=== PATIENT | female | born 1950 | race Caucasian/White ===

== ENCOUNTER 2017-06-20 11:45 | Outpatient (CLI) | payer OTHER ==
--- NOTE | 2017-06-21 14:27 | Mammography Report ---
BILATERAL DIGITAL SCREENING MAMMOGRAM with CAD: 06/20/17 11:45:00 CLINICAL: Routine screening. COMPARISON:06/18/16 and 05/04/15 FINDINGS: The breasts are almost entirely fatty.Bilateral benign calcifications. No mass, architectural distortion or suspicious calcifications. IMPRESSION: No mammographic evidence of malignancy. BI-RADS CATEGORY: 2 -- Benign RECOMMENDATION: Routine mammographic screening in one year. COMMENT: Patient follow-up letters are generated by our [employer] application.
== END 2017-06-20 11:46 | disposition home or self-care (01) ==
LOC: SPVWC 11:45
PROVIDERS: ATTEND Family Medicine
DX: Z12.31 Encounter for screening mammogram for malignant neoplasm of breast (principal)
CPT/HCPCS: 77067; G0202

== ENCOUNTER 2018-07-17 12:32 | Outpatient (CLI) | payer MEDICARE ==
--- NOTE | 2018-07-17 14:52 | Mammography Report ---
BILATERAL DIGITAL SCREENING MAMMOGRAM with CAD: 07/17/18 12:32:00 CLINICAL: Routine screening. COMPARISON:06/20/17 FINDINGS: The breasts are almost entirely fatty.Scattered bilateral benign calcifications. No mass, architectural distortion or suspicious calcifications. IMPRESSION: No mammographic evidence of malignancy. BI-RADS CATEGORY: 2 -- Benign RECOMMENDATION: Routine mammographic screening in one year. COMMENT: Patient follow-up letters are generated by our [employer] application.
== END 2018-07-17 12:33 | disposition home or self-care (01) ==
LOC: SPVWC 12:32
PROVIDERS: ATTEND Obstetrics & Gynecology
DX: Z12.31 Encounter for screening mammogram for malignant neoplasm of breast (principal)
CPT/HCPCS: 77067

== ENCOUNTER 2018-10-13 14:04 | Emergency (ER) | payer MEDICARE ==
--- NOTE | 2018-10-13 14:23 | Emergency Department Report ---
Chief Complaint: Headache Stated Complaint: MEDICAL CLEARANCE Time Seen by Provider: 10/13/18 14:18 - HPI History of Present Illness: Pt sent by Dr. Jacek Bill from [facility] pt presents with a pressure in the occipital region that began a week ago pt has dizziness, felt off balance pt states she has had vertigo previously but states it feels different no numbness, unilateral weakness no CP PMHx DM, HTN, HLD PSHx partial hysterectomy, bladder prolapse surgery MSE screening note: Focused history and physical exam performed. Due to findings the following was ordered: CT head, labs, EKG, and orthostatic vitals, UA ED Disposition for MSE Condition: Stable
[2018-10-13 15:34] LABS: Bilirubin,Urine NEG (Negative); Blood,Urine SM (Negative); Color,Urine Straw (Yellow); Protein,Urine <15 mg/dL mg/dL (Negative); Urobilinogen,Urine < 2.0 mg/dL (<2.0); WBC,Urine < 1.0 /HPF (0.0-6.0)
--- NOTE | 2018-10-13 16:12 | Cat Scan Report ---
PROCEDURE: CT HEAD/BRAIN WO CON TECHNIQUE: Spiral CT imaging of the brain was obtained without IV contrast. HISTORY: NAVARRO, dizziness COMPARISONS: None FINDINGS: Brain: Brain density appears normal. No evidence of intracranial hemorrhage. No parenchymal hemorr cole, mass lesions or mass effect are seen. No abnormal extra-axial fluid collects or masses are see n. I suspect there is a prominent perivascular space at the base of the right basal ganglia laterally . An old lacunar infarct could present in this manner. Ventricles: Ventricles are normal size and are midline. Bone Windows: No evidence of skull fracture. Paranasal sinuses: Visualized portions are clear.. Mastoid air cells: Clear. IMPRESSION: Well-defined area of decreased density inferior aspect right basal ganglia likely representing a prom inent perivascular space. I cannot exclude an old mature lacunar infarct. No acute intracranial abnormalities are visualized. This document is electronically signed by Fab Blackman MD., October 13 2018 04:10:05 PM ET
--- NOTE | 2018-10-13 16:24 | Emergency Department Report ---
ED Dizziness HPI - General Chief Complaint: Headache Stated Complaint: MEDICAL CLEARANCE Time Seen by Provider: 10/13/18 14:18 Source: patient Mode of arrival: Ambulatory Limitations: No Limitations - History of Present Illness Initial Comments: Patient is 68-year-old female with history of hypertension and diabetes. Patient presented to the ER complaining off 1 week history of dizziness and feeling room spinning. Patient stated that she's been having sinus pressure also. Patient denied any fever, neck pain or stiffness. Patient also denied any chest pain, weakness numbness of tingling sensation. MD Complaint: dizziness -: week(s) Timing: gradual onset Description: sense of movement, "room spinning" History of Same: Yes History of Trauma: No Severity: moderate Improves With: remaining still Worsens With: movement, position Associated Symptoms: denies other symptoms - Related Data Allergies Allergy/AdvReac Type Severity Reaction Status Date / Time codeine Allergy Unknown Verified 10/13/18 14:16 ED Review of Systems ROS: Stated complaint: MEDICAL CLEARANCE Other details as noted in HPI Comment: All other systems reviewed and negative Constitutional: denies: chills, fever Respiratory: denies: cough, orthopnea, shortness of breath, SOB with exertion, SOB at rest, wheezing Cardiovascular: denies: chest pain, palpitations Gastrointestinal: denies: abdominal pain, nausea, vomiting, diarrhea, constipation, hematemesis, melena, hematochezia Musculoskeletal: denies: back pain Neurological: headache, vertigo. denies: weakness, numbness, paresthesias, confusion, abnormal gait ED Past Medical Hx - Past Medical History Hx Hypertension: Yes Hx Diabetes: Yes Additional medical history: elevated cholesterol - Surgical History Additional Surgical History: partial hysterectomy,bladder tack - Social History Smoking Status: Never Smoker Substance Use Type: None ED Physical Exam - General Limitations: No Limitations General appearance: alert, in no apparent distress - Head Head exam: Present: atraumatic, normocephalic, normal inspection - Eye Eye exam: Present: normal appearance, PERRL - ENT ENT exam: Present: normal exam, normal orophraynx, mucous membranes moist - Neck Neck exam: Present: normal inspection, full ROM. Absent: tenderness, meningismus, lymphadenopathy, thyromegaly - Respiratory Respiratory exam: Present: normal lung sounds bilaterally - Cardiovascular Cardiovascular Exam: Present: regular rate, normal rhythm, normal heart sounds - GI/Abdominal GI/Abdominal exam: Present: soft, normal bowel sounds. Absent: distended, tenderness, guarding, rebound, rigid, organomegaly, mass, bruit, pulsatile mass, hernia - Extremities Exam Extremities exam: Present: normal inspection, full ROM, normal capillary refill. Absent: tenderness, pedal edema, calf tenderness - Back Exam Back exam: Present: normal inspection, full ROM. Absent: CVA tenderness (R), CVA tenderness (L), muscle spasm, paraspinal tenderness, vertebral tenderness - Neurological Exam Neurological exam: Present: alert, oriented X3, CN II-XII intact, normal gait, reflexes normal - Skin Skin exam: Present: warm, intact, normal color ED Course Vital Signs 10/13/18 10/13/18 10/13/18 14:19 15:40 15:45 Temperature 97.8 F Pulse Rate 88 70 Respiratory 18 11 L Rate Blood Pressure 167/80 130/65 O2 Sat by Pulse 100 99 99 Oximetry 10/13/18 10/13/18 10/13/18 16:00 16:15 16:30 Temperature Pulse Rate 66 68 66 Respiratory 16 16 12 Rate Blood Pressure 114/66 122/69 124/71 O2 Sat by Pulse 98 98 Oximetry 10/13/18 16:45 Temperature Pulse Rate 64 Respiratory 17 Rate Blood Pressure 126/70 O2 Sat by Pulse 97 Oximetry ED Medical Decision Making - Lab Data Result diagrams: 10/13/18 14:27 10/13/18 14:27 - EKG Data -: EKG Interpreted by Nh EKG shows normal: sinus rhythm Rate: normal - EKG Data Interpretation: no acute changes - Radiology Data Radiology results: report reviewed Referring Physician: YONI PORTILLO Patient Name: MIRLANDE FUENTES Date of : 1950 Sex: Female Report Date: 2018-10-13 Report Status: Finalized Findings [facility] [address] [place] [address] Cat Scan Report Signed Patient: MIRLANDE FUENTES MR#: [id number] : 1950 Acct:[id number] Age/Sex: 68 / F ADM Date: 10/13/18 Loc: ED Attending Dr: Ordering Physician: ALICIA GAGNON Date of Service: 10/13/18 Procedure(s): CT head/brain wo con Accession Number(s): [id number] cc: ALICIA GAGNON PROCEDURE: CT HEAD/BRAIN WO CON TECHNIQUE: Spiral CT imaging of the brain was obtained without IV contrast. HISTORY: NAVARRO, dizziness COMPARISONS: None FINDINGS: Brain: Brain density appears normal. No evidence of intracranial hemorrhage. No parenchymal hemorrhage, mass lesions or mass effect are seen. No abnormal extra-axial fluid collects or masses are seen. I suspect there is a prominent perivascular space at the base of the right basal ganglia laterally. An old lacunar infarct could present in this manner. Ventricles: Ventricles are normal size and are midline. Bone Windows: No evidence of skull fracture. Paranasal sinuses: Visualized portions are clear.. Mastoid air cells: Clear. IMPRESSION: Well-defined area of decreased density inferior aspect right basal ganglia likely representing a prominent perivascular space. I cannot exclude an old mature lacunar infarct. No acute intracranial abnormalities are visualized. This document is electronically signed by Fab Martino MD., October 13 2018 04:10:05 PM ET Transcribed By: DFN Dictated By: FAB MARTINO MD Electronically Authenticated By: FAB MARTINO MD Signed Date/Time: 10/13/18 1612 DD/ 160 TD/TT: 10/13/18 1604 - Medical Decision Making Patient is 68-year-old female with history of hypertension and diabetes. Patient presented to the ER complaining off 1 week history of dizziness and feeling room spinning. Patient stated that she's been having sinus pressure also. Patient denied any fever, neck pain or stiffness. Patient also denied any chest pain, weakness numbness of tingling sensation. Patient received meclizine 25 mg by mouth. Patient stated that she is feeling much better and she is ready to go home. Patient advised to follow-up with her primary care physician in the next 2-3 days for further management. Patient also advised to return to the ER if her symptoms are not improved. Critical care attestation.: If time is entered above; I have spent that time in minutes in the direct care of this critically ill patient, excluding procedure time. ED Disposition Clinical Impression: Dizziness, Vertigo, Sinusitis Disposition: DC-01 TO HOME OR SELFCARE Is pt being admited?: No Condition: Stable Instructions: Vertigo (ED), Dizziness (ED), Sinusitis (ED) Referrals: DEL HSIEH MD [Primary Care Provider] - 3-5 Days
[2018-10-13] MEDS ORDERED: ANTIVERT PO ONE (16:26)
[2018-10-13 16:28] LABS: Basophils % (Auto) 0.3 % (0.0-1.8); Eosinophils # (Auto) 0.2 K/mm3 (0.0-0.4); Eosinophils % (Auto) 3.1 % (0.0-4.3); Hemoglobin 13.7 gm/dl (10.1-14.3); Lymphocytes # (Auto) 2.6 K/mm3 (1.2-5.4); Lymphocytes % (Auto) 37.1 % (13.4-35.0); Mean Corpuscular HGB Conc 33 % (30-34); Mean Corpuscular Volume 91 fl (79-97); Monocytes # (Auto) 0.3 K/mm3 (0.0-0.8); Monocytes % (Auto) 4.6 % (0.0-7.3); Platelet Count 253 K/mm3 (140-440); Red Blood Count 4.53 M/mm3 (3.65-5.03); Red Cell Distribution Width 14.9 % (13.2-15.2)
[2018-10-13 16:51] LABS: Alanine Aminotransferase 20 units/L (7-56); Albumin 4.3 g/dL (3.9-5); BUN/Creatinine Ratio 20; Blood Urea Nitrogen 10 mg/dL (7-17); Calcium 9.4 mg/dL (8.4-10.2); Hemolysis Index 11
[2018-10-14 19:09] VITALS: BP 126/70
== END 2018-10-13 18:30 | disposition home or self-care (01) ==
LOC: ED 14:04
DX: R42 Dizziness and giddiness (principal); J32.9 Chronic sinusitis, unspecified; I10 Essential (primary) hypertension; E11.9 Type 2 diabetes mellitus without complications; E78.00 Pure hypercholesterolemia, unspecified; Z90.710 Acquired absence of both cervix and uterus; Z88.6 Allergy status to analgesic agent
CPT/HCPCS: 36415; 70450; 80053; 81001; 84443; 85025; 93005; 93010; 99284

== ENCOUNTER 2019-09-15 10:26 | Outpatient (CLI) | payer MEDICARE ==
--- NOTE | 2019-09-15 12:48 | Mammography Report ---
DIGITAL SCREENING MAMMOGRAM WITH CAD, 09/15/2019 INDICATION: Routine screening mammography. TECHNIQUE: Digital bilateral 2D mammography was obtained in the craniocaudal and mediolateral obliq ue projections. This examination was interpreted with the benefit of Computer-Aided Detection analysi s. COMPARISON: 06/18/2016 FINDINGS: Breast Density: There are scattered areas of fibroglandular density. There is no evidence of dominant mass, suspicious calcifications or architectural distortion in eithe r breast. Scattered bilateral benign calcifications. IMPRESSION: No mammographic evidence of malignancy. Follow up recommendation: Routine yearly BI-RADS Category 2: Benign. A "normal" or negative report should not discourage follow up or biopsy of a clinically significant f inding. A written summary of these findings will be mailed to the patient. The patient will be entered into a mammography reporting system which will generate a reminder letter for the patient's next appointmen t at the appropriate interval. The [employer] recommends yearly mammograms starting at age 40 and continuing as l perry as a woman is in good health. Breast MRI is recommended for women with an approximate 20-25% or greater lifetime risk of breast cancer, including women with a strong family history of breast or ova tyler cancer or who have been treated for Hodgkin's disease. Signer Name: Jacek Enrique MD Signed: 09/15/2019 12:43 PM Workstation Name: [id number]
== END 2019-09-15 10:27 | disposition home or self-care (01) ==
LOC: SPVWC 10:26
PROVIDERS: ATTEND Internal Medicine
DX: Z12.31 Encounter for screening mammogram for malignant neoplasm of breast (principal); N64.89 Other specified disorders of breast
CPT/HCPCS: 77067

== ENCOUNTER 2020-09-16 10:09 | Outpatient (CLI) | payer MEDICARE ==
--- NOTE | 2020-09-16 12:32 | Mammography Report ---
DIGITAL SCREENING MAMMOGRAM WITH CAD, 09/16/2020 CLINICAL INFORMATION / INDICATION: Routine screening mammography. SCREENING MAMMO TECHNIQUE: Digital bilateral 2D mammography was obtained in the craniocaudal and mediolateral obliqu e projections. This examination was interpreted with the benefit of Computer-Aided Detection analysis . COMPARISON: 09/15/2019, 07/17/2018 FINDINGS: Breast Density: There are scattered areas of fibroglandular density. No dominant mass, suspicious calcifications, or architectural distortion in either breast. Postreduction changes are noted bilaterally IMPRESSION: No mammographic evidence of malignancy. Follow up recommendation: Routine yearly BI-RADS Category 2: Benign. A "normal" or negative report should not discourage follow up or biopsy of a clinically significant f inding. A written summary of these findings will be mailed to the patient. The patient will be entered into a mammography reporting system which will generate a reminder letter for the patient's next appointmen t at the appropriate interval. The [employer] recommends yearly mammograms starting at age 40 and continuing as l perry as a woman is in good health. Breast MRI is recommended for women with an approximate 20-25% or greater lifetime risk of breast cancer, including women with a strong family history of breast or ova tyler cancer or who have been treated for Hodgkin's disease. Signer Name: Gerard Garcia MD Signed: 09/16/2020 12:28 PM Workstation Name: [id number]
== END 2020-09-16 10:10 | disposition home or self-care (01) ==
LOC: SPVWC 10:09
PROVIDERS: ATTEND Internal Medicine
DX: Z12.31 Encounter for screening mammogram for malignant neoplasm of breast (principal)
CPT/HCPCS: 77067

== ENCOUNTER 2021-01-19 12:47 | Outpatient (CLI) | payer MEDICARE ==
--- NOTE | 2021-01-19 14:52 | Ultrasound Report ---
ULTRASOUND PELVIS INDICATION: ACUTE ABDOMEN. TECHNIQUE: Transabdominal and Transvaginal. Duplex Color Doppler used: Yes. COMPARISON: None available FINDINGS: Uterus: Surgically absent. No significant abnormality along the vaginal cuff. Right Ovary: Surgically absent. No significant right adnexal abnormality. Left Ovary: Not visualized. No significant left adnexal abnormality. Urinary Bladder: Normal. Free Fluid: None. Additional Findings: There is a prominent mildly thickened bowel loops seen along the left lower quad rant. IMPRESSION: 1. Prominent left lower quadrant bowel loop could represent enteritis and account for the patient's p ain. Please correlate with the clinical findings. A CT abdomen and pelvis with contrast may be helpfu l for further evaluation. 2. No other significant abnormality of the pelvis with additional findings as above. Signer Name: Maximino Velazquez MD Signed: 01/19/2021 2:48 PM Workstation Name: [id number]
== END 2021-01-19 12:48 | disposition home or self-care (01) ==
LOC: SPVWC 12:47
PROVIDERS: ATTEND Internal Medicine
DX: R10.0 Acute abdomen (principal)
CPT/HCPCS: 76830; 76856

== ENCOUNTER 2021-04-07 10:22 | Outpatient (CLI) | payer MEDICARE ==
[2021-04-07 11:31] LABS: Blood Urea Nitrogen 12 mg/dL (7-17)
--- NOTE | 2021-04-07 13:06 | Cat Scan Report ---
CT ABDOMEN AND PELVIS WITH CONTRAST HISTORY: ABDOMINAL PAIN OMNI 300 100ML . COMPARISON: None. TECHNIQUE: CT images of the abdomen and pelvis were obtained following administration of intravenous contrast. All CT scans at this location are performed using CT dose reduction for ALARA by means of automated exposure control. CONTRAST: 100 ml of intravenous contrast administered. FINDINGS: Lungs/bones: Lung bases are clear with minimal atelectasis Abdomen/pelvis: There is diffuse fatty infiltration of the liver. A few hypodensities are seen which may represent small cyst however too small to characterize. The spleen, adrenal glands, pancreas, ga llbladder and upper GI tract appear normal. There is a 3 mm nonobstructing right renal stone. Urinary bladder appears normal. No bowel obstruction is seen. Calcifications in the region of the cervix. De generative changes seen throughout spine IMPRESSION: 1. Fatty infiltration of the liver. 2. No bowel obstruction is seen. No focal inflammatory change. Signer Name: Allen Bethea MD Signed: 04/07/2021 1:02 PM Workstation Name: [id number]
== END 2021-04-07 10:23 | disposition home or self-care (01) ==
LOC: CT 10:22
PROVIDERS: ATTEND Internal Medicine
DX: K76.0 Fatty (change of) liver, not elsewhere classified (principal); N20.0 Calculus of kidney; N88.8 Other specified noninflammatory disorders of cervix uteri; M47.819 Spondylosis without myelopathy or radiculopathy, site unspecified
CPT/HCPCS: 36415; 74177; 82565; 84520; Q9967

== ENCOUNTER 2021-07-25 11:44 | Outpatient (CLI) | payer MEDICARE ==
--- NOTE | 2021-07-25 14:06 | Mammography Report ---
DEXA BONE DENSITY SCAN INDICATION / CLINICAL INFORMATION: ASYMPTOMATIC MENOPAUSAL STATE. 70 years Female COMPARISON: DEXA scan from 09/10/2013 LUMBAR SPINE, L1-L4: - Bone mineral density (BMD) = 1.364 g/cm2. - T-score = 2.9 - Z-score = 4.9 Change (%) since most recent prior (if available): 5.9% increase LEFT HIP, NECK : - Bone mineral density (BMD) = 0.815 g/cm2. - T-score = -0.3 - Z-score = 1.4 Change (%) since most recent prior (if available): 0.1% decrease IMPRESSION: 1. WHO Classification: Normal bone density. Fracture Risk: Not Increased. Note: 10-Year Fracture Risk (FRAX) not reported. This DEXA unit lacks FRAX functionality. BMD Reporting Guidelines (ISCD, 2015) BMD Reporting in Postmenopausal Women and in Men Age 50 and Older - T-scores are preferred. - The WHO densitometric classification is applicable. BMD Reporting in Females Prior to Menopause and in Males Younger Than Age 50 - Z-scores, not T-scores, are preferred. This is particularly important in children. - A Z-score of -2.0 or lower is defined as below the expected range for age, and a Z-score above -2.0 is within the expected range for age. - Osteoporosis cannot be diagnosed in men under age 50 on the basis of BMD alone. - The WHO diagnostic criteria may be applied to women in the menopausal transition. http://www.iscd.org/official-positions/6559-tndo-yqbzggvb-positions-adult/ Signer Name: Santana Thompson MD Signed: 07/25/2021 2:02 PM Workstation Name: [email or web address]
== END 2021-07-25 11:45 | disposition home or self-care (01) ==
LOC: SPVWC 11:44
PROVIDERS: ATTEND Internal Medicine
DX: Z13.820 Encounter for screening for osteoporosis (principal); Z78.0 Asymptomatic menopausal state
CPT/HCPCS: 77080

== ENCOUNTER 2021-11-01 13:17 | Outpatient (CLI) | payer MEDICARE ==
--- NOTE | 2021-11-03 18:39 | Mammography Report ---
DIGITAL SCREENING MAMMOGRAM WITH CAD, 11/01/2021 CLINICAL INFORMATION / INDICATION: Routine screening mammography. SCREENING MAMMO Z12.31 TECHNIQUE: Digital bilateral 2D mammography was obtained in the craniocaudal and mediolateral obliqu e projections. This examination was interpreted with the benefit of Computer-Aided Detection analysis . COMPARISON: 09/16/2020, 09/15/2019 FINDINGS: Breast Density: There are scattered areas of fibroglandular density. No dominant mass, suspicious calcifications, or architectural distortion in either breast. No interval change. IMPRESSION: No mammographic evidence of malignancy. Follow up recommendation: Routine yearly screening mammogram. BI-RADS Category 1: NEGATIVE A "normal" or negative report should not discourage follow up or biopsy of a clinically significant f inding. A written summary of these findings will be mailed to the patient. The patient will be entered into a mammography reporting system which will generate a reminder letter for the patient's next appointmen t at the appropriate interval. The [employer] recommends yearly mammograms starting at age 40 and continuing as l perry as a woman is in good health. Breast MRI is recommended for women with an approximate 20-25% or greater lifetime risk of breast cancer, including women with a strong family history of breast or ova tyler cancer or who have been treated for Hodgkin's disease. Signer Name: Melanie Brown MD Signed: 11/03/2021 6:34 PM Workstation Name: [id number]
== END 2021-11-01 13:18 | disposition home or self-care (01) ==
LOC: SPVWC 13:17
PROVIDERS: ATTEND Internal Medicine
DX: Z12.31 Encounter for screening mammogram for malignant neoplasm of breast (principal)
CPT/HCPCS: 77067

== ENCOUNTER 2022-03-21 09:37 | Outpatient (CLI) | payer MEDICARE ==
[2022-03-21 10:50] LABS: Alanine Aminotransferase 14 units/L (7-56); Albumin 4.8 g/dL (3.9-5); Blood Urea Nitrogen 11 mg/dL (7-17); Calcium 9.9 mg/dL (8.4-10.2); Chol/HDL Ratio 3.52 %; HDL Cholesterol 63 mg/dL (40-59); Hemolysis Index 4; LDL Cholesterol,Direct 130 mg/dL (50-130)
[2022-03-21 10:59] LABS: BUN/Creatinine Ratio 18
[2022-03-21 11:22] LABS: Creatinine,Urine 18.3 mg/dL (0.1-20.0); Microalbumin/Creatinine Ratio 65.5 ug/mg
[2022-03-21 12:27] LABS: Basophils % (Auto) 0.6 % (0.0-1.8); Eosinophils # (Auto) 0.2 K/mm3 (0.0-0.4); Eosinophils % (Auto) 2.8 % (0.0-4.3); Hematocrit 41.7 % (30.3-42.9); Lymphocytes # (Auto) 2.6 K/mm3 (1.2-5.4); Lymphocytes % (Auto) 37.1 % (13.4-35.0); Mean Corpuscular HGB Conc 34 % (30-34); Mean Corpuscular Volume 91 fl (79-97); Monocytes # (Auto) 0.5 K/mm3 (0.0-0.8); Monocytes % (Auto) 6.9 % (0.0-7.3); Red Blood Count 4.61 M/mm3 (3.65-5.03); Red Cell Distribution Width 15.2 % (13.2-15.2)
[2022-03-21 14:04] LABS: Platelet Count 224 K/mm3 (140-440)
== END 2022-03-21 09:38 | disposition home or self-care (01) ==
LOC: LAB 09:37
PROVIDERS: ATTEND Internal Medicine
DX: E11.9 Type 2 diabetes mellitus without complications (principal); E55.9 Vitamin D deficiency, unspecified; R53.83 Other fatigue; I10 Essential (primary) hypertension; K76.0 Fatty (change of) liver, not elsewhere classified; E78.5 Hyperlipidemia, unspecified; Z00.00 Encounter for general adult medical examination without abnormal findings
CPT/HCPCS: 36415; 80053; 80061; 82043; 82306; 83036; 84443; 85025